=== PATIENT | female | born 1985 | race Caucasian/White ===

== ENCOUNTER 2022-04-13 09:09 | Emergency (ER) | payer OTHER, SELFPAY ==
--- NOTE | 2022-04-13 09:19 | ED.ANXIETY ---
HPI - Anxiety General Chief Complaint: Anxiety Stated Complaint: anxiety Time Seen by Provider: 04/13/22 09:19 Source: patient Mode of arrival: ambulatory Limitations: no limitations History of Present Illness HPI narrative: 36-year-old female, smoker with a history of anxiety, chronic pain with negative stress test presents to the ER with a six-month history of -- left-sided chest which is unprovoked and nonradiating. -- Nausea. he complained of abdominal pain to the nurse but did not tell me that she was having abdominal pain. She has a history of an ovarian cyst. -- throat pain -- loss of taste for the past 3 months -- dizziness she was on her way to work when she developed the above symptoms. The patient turned around and went back home. She is brought into the ER by EMS. MD complaint: anxiety Onset (ago): month(s) Symptoms: chest pain and extremity numbness/tingling Severity: mild Quality: constant Place: home History of similar episodes: Yes Provoking factors: none known Relieving factors: nothing Exacerbating factors: nothing Associated symptoms: denies other symptoms, chest pain, palpitations and nausea/vomiting Related Data Home Medications Medication Instructions Recorded Confirmed lorazepam 1 mg tablet 0.25 mg PO TID PRN Anxiety 04/13/22 04/13/22 Allergies Allergy/AdvReac Type Severity Reaction Status Date / Time vancomycin Allergy Difficulty Verified 04/13/22 09:39 Breathing Review of Systems Review of Systems: All systems reviewed & are unremarkable except as noted in HPI and below Constitutional: Constitutional: Reports as per HPI and Reports no additional constitutional complaints Eyes: Eyes: Reports as per HPI and Reports no additional eye complaints ENT: Reports system reviewed and no additional complaints, except as documented, Reports as per HPI and Reports sore throat Cardiovascular: Cardiovascular: Reports as per HPI, Reports no additional cardiovascular complaints and Reports chest pain Respiratory: Respiratory: Reports as per HPI and Reports no additional respiratory complaints Gastrointestinal: Gastrointestinal: Reports as per HPI and Reports no additional gastrointestinal complaints Comments: Had an EGD last year which revealed fungal infection Genitourinary: Genitourinary: Reports no additional female genitourinary complaints and Reports as per HPI Musculoskeletal: Musculoskeletal: Reports no additional musculoskeletal complaints and Reports as per HPI Integumentary/Breasts: Skin/Breast: Reports system reviewed and no additional complaints, except as docu and Reports as per HPI Neurologic: Reports system reviewed and no additional complaints, except as documented and Reports as per HPI Psychiatric: Psychiatric: Reports no additional psychiatric complaints, Reports as per HPI and Reports anxiety Endocrine: Endocrine: Reports no additional endocrine complaints and Reports as per HPI Hematologic/Lymphatic: Hematologic/Lymphatic: Reports no additional hematologic/lymphatic complaints and Reports as per HPI Allergic/Immunologic: Allergic/Immunologic: Reports no additional allergic/immunologic complaints and Reports as per HPI PMFSH Past Medical History Medical History Anxiety Social History Social History Substance use type: does not use Exam Const: General: healthy appearing and no acute distress Orientation/consciousness: patient oriented x3 Limitations: no limitations HENMT: Head: normal to inspection Ears: external ears normal Face/Nose/Sinus: Normal external nose present Face and sinus: normal facial exam Mouth: Yes Normal oral and palatal mucosa present Throat: posterior oropharynx normal Eyes: Conjunctivae: conjunctivae normal Pupils: Equal, round and reactive pupils present EOM: EOMs intact bilaterally Direct Ophthalmoscopy: no photoph
[2022-04-13 09:21] VITALS: BP 109/77; PULSE 88; RESP 20; TEMP 37.3; O2SAT 96
--- NOTE | 2022-04-13 09:30 | ECG_ITS ---
Measurements Intervals [place] Rate: 85 P: 90 TN: 117 QRS: 66 QRSD: 110 T: 84 QT: 377 QTc: 449 Interpretive Statements SINUS RHYTHM WITH SHORT TN INTERVAL INCOMPLETE LEFT BUNDLE BRANCH BLOCK ABNORMAL ECG NO PREVIOUS ECG AVAILABLE FOR COMPARISON Electronically Signed On 04-13-2022 10:03:36 PHOTOGRAPH FINISHER by Jadon Gonzales D.O.
[2022-04-13 09:57] LABS: Hematocrit 35.8 % (35.0-49.0); Hemoglobin 12.2 g/dL (12.0-15.0); Mean Corpuscular HGB Conc 34.1 g/dL (32.0-36.0); Mean Corpuscular Hemoglobin 29.5 pg (27.0-31.0); Mean Corpuscular Volume 86.5 fL (78.0-102.0); Mean Platelet Volume 9.1 fl (9.2-11.8); Platelet Count Result 192 K/mm3 (150-420); Red Blood Count 4.14 M/mm3 (4.20-5.40); Red Cell Distribution Width 12.2 % (11.6-14.4); White Blood Count 3.4 K/mm3 (4.8-10.8)
[2022-04-13 09:59] LABS: Add Urine Microscopic? YES; Appearance Urine Clear (Clear); Bilirubin Urine Negative (Negative); Blood Urine 1+ (Negative); Color Urine Light Yellow (Yellow); Glucose Urine UA Negative (Negative); Ketones Urine Negative (Negative); Leukocyte Esterase Ur Negative LEU/UL (Negative); Nitrate Urine Negative (Negative); Protein Urine Negative (Negative); Specific Grav Ur <= 1.005 (1.010-1.020); Urobilinogen Urine 0.2 mg/dL (0.2-1.0)
[2022-04-13 10:05] LABS: RBC Urine 0-2 /hpf (0-2)
[2022-04-13 10:06] LABS: Bacteria Urine Trace /hpf; Squamous Epithelial Cell Urine Few /hpf (Few); WBC Urine None seen /hpf (0-3)
[2022-04-13 10:07] LABS: Pregnancy On Board Control Positive; Urine Pregnancy Test Negative
[2022-04-13 10:12] LABS: Band Neutrophils Percent 4 % (0-6); Lymphocytes Absolute Manual 0.78 K/mm3 (1.1-4.5); Lymphocytes Percent Manual 23 % (18-44); Monocytes Percent Manual 6 % (3-9); Neutrophils Absolute Manual 2.41 K/mm3 (1.7-7.2); Neutrophils Percent Manual 67 % (46-73); Platelet Estimate Adequate (Adequate); Total Cells Counted 100
[2022-04-13 10:16] LABS: Lactic Acid Reflex 0.6 mmol/L (0.4-2.0)
[2022-04-13 10:21] LABS: Albumin Level 4.2 g/dL (3.4-5.0); Alkaline Phosphatase 61 U/L (46-116); Anion Gap 6 mmol/L (8-16); Aspartate Amino Transferase 11 U/L (15-37); Bilirubin,Total 0.5 mg/dL (0.00-1.00); Blood Urea Nitrogen 7 mg/dL (7-18); Calcium 8.5 mg/dL (8.5-10.1); Carbon Dioxide 29 mmol/L (21-32); Chloride 105 mmol/L (98-108); Estimated CRCL calculation 75 ml/min; Estimated Glomerular Filt Rate > 60; Glucose 87 mg/dL (70-99); Osmolality Calculated 287 mOsm/kg (285-295); Potassium 3.2 mmol/L (3.5-5.1); Sodium 140 mmol/L (136-145); Thyroid Stimulating Hormone 0.84 uIU/mL (0.36-3.74); Total Protein 7.6 g/dL (6.4-8.2); Troponin I 4.2 ng/L (0.00-60.4)
[2022-04-13 10:26] LABS: Lipase 18 U/L (16-77)
[2022-04-13 10:27] LABS: Strep Group A RT-PCR NOT DETECTED (Negative)
[2022-04-13 10:28] LABS: Partial Thromboplastin Time 30.3 SEC (23.90-30.70)
[2022-04-13 10:31] LABS: Alanine Aminotransferase 12 U/L (14-59)
[2022-04-13 10:33] LABS: Influenza A QL RT-PCR Positive (Negative); Influenza B QL RT-PCR Negative (Negative); SARS-CoV-2 RNA PCR Negative (Negative)
[2022-04-13 10:44] VITALS: BP 106/76; PULSE 85; RESP 20; O2SAT 97
[2022-04-13] MEDS: POTASSIUM CHLORIDE 20 MEQ TABLET PO (11:11)
[2022-04-13 11:28] VITALS: BP 110/77; PULSE 91; RESP 20; O2SAT 96
== END 2022-04-13 11:28 | disposition home or self-care (01) ==
PROVIDERS: Emergency Provider Internal Medicine Critical Care Medicine
DX: J10.1 Influenza due to other identified influenza virus with other respiratory manifestations (principal); F41.9 Anxiety disorder, unspecified; Z20.822 Contact with and (suspected) exposure to COVID-19
CPT/HCPCS: 36415; 80053; 81001; 81025; 83605; 83690; 84443; 84484; 85025; 85730; 87636; 87651; 93005; 99284; A9270

== ENCOUNTER 2022-06-02 08:01 | Emergency (ER) | payer OTHER, SELFPAY ==
[2022-06-02] VITALS (16 sets, daily range): BP systolic 101–118; BP diastolic 65–85; PULSE 66–99; RESP 14–24; TEMP 36.3; O2SAT 97–100
--- NOTE | ~2022-06-02 | XR_ITS ---
EXAMINATION: XR chest 2V 06/02/2022 08:43 INDICATION: Chest pain and shortness of breath PROCEDURE: 2 view chest COMPARISON: No prior studies for comparison. FINDINGS: The lungs are clear. The cardiomediastinal silhouette is within normal limits. There are no pleural effusions. There is no pneumothorax suspected. There are prominent bilateral nipple shad ows. IMPRESSION: 1: NO ACUTE CARDIOPULMONARY DISEASE. Reviewed, dictated and finalized at location L. TERIA FOOD SERVER
--- NOTE | 2022-06-02 08:10 | ECG_ITS ---
Measurements Intervals [place] Rate: 94 P: 81 AL: 126 QRS: 23 QRSD: 104 T: 49 QT: 350 QTc: 438 Interpretive Statements SINUS RHYTHM INCOMPLETE RIGHT BUNDLE BRANCH BLOCK [90+ ms QRS DURATION, TERMINAL R IN V1/V2, 40+ ms S IN I/aVL/V4/V5/V6] BORDERLINE ECG COMPARED TO ECG 04/13/2022 09:42:01 INCOMPLETE RIGHT BUNDLE-BRANCH BLOCK NOW PRESENT Electronically Signed On 06-02-2022 14:13:08 TIRE MOLD TESTER by Dano Randhawa M.D.
[2022-06-02 08:31] LABS: Eosinophils Absolute Auto 0.1 K/mm3 (0-0.3); Eosinophils Percent Auto 2.7 % (0-4.4); Hematocrit 35.1 % (37.0-47.0); Immature Granulocyte Absolute 0.01 K/mm3 (0.00-0.031); Immature Granulocyte Percent A 0.2 % (0-0.5); Lymphocytes Absolute Auto 1.31 K/mm3 (0.9-3.2); Lymphocytes Percent Auto 31.8 % (18.3-44.2); Mean Corpuscular HGB Conc 34.2 g/dl (32-36); Mean Corpuscular Hemoglobin 29.2 pg (26-34); Mean Corpuscular Volume 85.4 fl (80-100); Mean Platelet Volume 8.6 fl (7.4-10.4); Monocytes Absolute Auto 0.3 K/mm3 (0.1-0.6); Monocytes Percent Auto 6.6 % (2.6-8.5); Neutrophils Absolute Auto 2.4 K/mm3 (1.3-6.7); Neutrophils Percent Auto 57.7 % (45.5-73.1); Platelet Count Result 238 k/mm3 (150-375); Red Blood Count 4.11 M/mm3 (4.2-5.4); Red Cell Distribution Width 12.9 % (11.5-14.5); White Blood Count 4.1 K/mm3 (4.5-10.0)
[2022-06-02 08:41] LABS: INR 1.1; Prothrombin Time 13.9 Seconds (11.1-14.7)
[2022-06-02 08:42] LABS: Partial Thromboplastin Time 26.4 SECONDS (22.3-36.8)
[2022-06-02 08:43] LABS: Alanine Aminotransferase 14 U/L (6-35); Albumin Level 4.6 g/dL (3.5-5.1); Alkaline Phosphatase 53 U/L (38-126); Anion Gap 5 mmol/L (8-16); Aspartate Amino Transferase 18 U/L (14-36); Blood Urea Nitrogen 9 mg/dL (7-17); Calcium 8.8 mg/dL (8.4-10.2); Carbon Dioxide 26 mmol/L (22-30); Chloride 107 mmol/L (98-107); Estimated CRCL calculation 91 ml/min; Estimated Glomerular Filt Rate > 60; Glucose 103 mg/dL (65-110); Lipase 36 U/L (23-300); Potassium 3.5 mmol/L (3.4-5.0); Sodium 138 mmol/L (137-145)
[2022-06-02 08:52] LABS: Troponin I < 0.012 ng/mL (0.000-0.034)
[2022-06-02] MEDS: ACETAMINOPHEN 500 MG TABLET 1000 MG PO (09:53)
--- NOTE | 2022-06-02 09:53 | PC.NURSE ---
pt only wanting to take 1 tylenol due to the tablets being to big to swallow. offered to cut tablets and pt refused. pt only drank half of the gi cocktail because it was making her tongue numb and that was causing her to have anxiety. pt denies any pain at this time.
[2022-06-02] MEDS: BELLADONNA ALK/PHENOB ELIX 10 ML, MAG HYDROX/ALUMINUM HYD/SIMETH 30 ML, LIDOCAINE HCL 2... PO (09:54)
--- NOTE | 2022-06-02 10:58 | ED.CHESTPAIN ---
HPI - Chest Pain General Chief Complaint: Chest Pain Stated Complaint: chest pain, high heart rate Time Seen by Provider: 06/02/22 08:06 History of Present Illness HPI narrative: Patient is a 37-year-old female who presents ER with elevated heart rate. Reports it was 160 bpm while she was driving. She is having chest tightness. This has been happening to her intermittently over the last several months. She has been following with her doctor in regards to but does not have a diagnosis. She does have history of anxiety and denies feeling anxious prior to symptoms beginning. She does report feeling anxious after she began having her racing the heart. No loss of consciousness. No numbness or weakness in arm or leg. Related Data Home Medications Medication Instructions Recorded Confirmed lorazepam 1 mg tablet 0.25 mg PO TID PRN Anxiety 04/13/22 04/13/22 Allergies Allergy/AdvReac Type Severity Reaction Status Date / Time vancomycin Allergy Difficulty Verified 04/13/22 09:39 Breathing Review of Systems Review of Systems: All systems reviewed & are unremarkable except as noted in HPI and below Constitutional: Constitutional: Denies chills, Denies fatigue and Denies fever(s) ENT: Denies nasal congestion and Denies sore throat Cardiovascular: Cardiovascular: Denies chest pain, Reports rapid heart rate and Denies radiating jaw, neck or arm pain Respiratory: Respiratory: Denies cough, Denies dyspnea and Denies wheezing Gastrointestinal: Gastrointestinal: Denies abdominal pain, Denies nausea and Denies vomiting Genitourinary: Genitourinary: Denies nocturia, Denies dysuria and Denies flank pain PMFSH Past Medical History Medical History Anxiety Social History Social History Substance use type: does not use Exam Narrative: GENERAL: Well-appearing, well-nourished, and in no acute distress. HEAD: Normocephalic, atraumatic. EYES: PERRL and EOMI. CHEST: Clear to auscultation. No respiratory distress. HEART: Regular rate and rhythm. Normal peripheral pulses. ABDOMEN: Soft, nontender, nondistended. EXTREMITIES: Normal range of motion. No edema. SKIN: Warm, dry, no rash. NEURO: Alert and oriented x3. PSYCH: Normal mood and affect. Course Course Emergency Course: No evidence of arrhythmia here. Labs unremarkable. Patient feeling improved. She was given GI cocktail for some of her chest tightness which did not really change anything. She will be discharged home and recommend follow-up with PCP. Patient aware of diagnosis and treatment plan and lab results. Vital Signs Vital signs: Vital Signs Temperature 97.4 F L 06/02/22 08:07 Pulse Rate 99 06/02/22 08:07 Respiratory Rate 16 06/02/22 08:07 Blood Pressure 118/85 06/02/22 08:07 Pulse Oximetry 100 06/02/22 08:07 Oxygen Delivery Room Air 06/02/22 08:07 Temperature 97.4 F L 06/02/22 08:07 Pulse Rate 66 06/02/22 11:25 Respiratory Rate 16 06/02/22 11:25 Blood Pressure 104/65 06/02/22 11:25 Pulse Oximetry 98 06/02/22 11:25 Oxygen Delivery Room Air 06/02/22 08:07 MDM - Chest Pain Lab Data 06/02/22 08:19 06/02/22 08:18 Labs: Lab Results 06/02/22 06/02/22 06/02/22 Range/Units 08:18 08:18 08:19 WBC 4.1 L (4.5-10.0) K/mm3 RBC 4.11 L (4.2-5.4) M/mm3 Hgb 12.0 (12.0-15.0) g/dL Hct 35.1 L (37.0-47.0) % MCV 85.4 (80-100) fl MCH 29.2 (26-34) pg MCHC 34.2 (32-36) g/dl RDW 12.9 (11.5-14.5) % Plt Count 238 (150-375) k/mm3 MPV 8.6 (7.4-10.4) fl Immature Gran % (Auto) 0.2 (0-0.5) % Neut % (Auto) 57.7 (45.5-73.1) % Lymph % (Auto) 31.8 (18.3-44.2) % [place] % (Auto) 6.6 (2.6-8.5) % Eos % (Auto) 2.7 (0-4.4) % Baso % (Auto) 1.0 (0.2-1.2) % Lymph # (Auto) 1.31 (0.9-3.2) K/mm3 [place] # (Auto)
== END 2022-06-02 11:25 | disposition home or self-care (01) ==
PROVIDERS: Emergency Provider Emergency Medicine
DX: R00.2 Palpitations (principal); F41.9 Anxiety disorder, unspecified; I45.10 Unspecified right bundle-branch block
CPT/HCPCS: 36415; 71046; 80053; 83690; 84484; 85025; 85610; 85730; 93005; 99284; A9270

== ENCOUNTER 2022-06-09 08:20 | Emergency (ER) | payer OTHER, SELFPAY ==
[2022-06-09] VITALS (9 sets, daily range): BP systolic 105–146; BP diastolic 68–90; PULSE 78–98; RESP 16–21; TEMP 36.8; O2SAT 96–99
--- NOTE | 2022-06-09 08:25 | ECG_ITS ---
Measurements Intervals [place] Rate: 86 P: 102 [place]: 118 QRS: 47 QRSD: 110 T: 88 QT: 353 QTc: 424 Interpretive Statements SINUS RHYTHM WITH SINUS ARRHYTHMIA WITH SHORT WI INTERVAL BORDERLINE ECG COMPARED TO ECG 06/02/2022 08:13:33 CRITERIA FOR INCOMPLETE RIGHT BUNDLE-BRANCH BLOCK NO LONGER APPRECIATED Electronically Signed On 06-09-2022 15:17:44 AEROPHYSICIST by Dale Cerna M.D.
--- NOTE | 2022-06-09 08:46 | ED.CHESTPAIN ---
HPI - Chest Pain General Chief Complaint: Chest Pain Stated Complaint: chest pain; high heart rate Time Seen by Provider: 06/09/22 08:31 Source: patient Mode of arrival: ambulatory Limitations: no limitations History of Present Illness HPI narrative: Patient states she has been having episodes tachycardia and actually went to another hospital 1 week ago because she was driving. The time she arrived her heart rate had improved. Her also helps with some of the history. Patient has been having these episodes since she was diagnosed with COVID last September. This morning she got up with rapid heartbeat and sharp stabbing pain in her chest at 6:15 a.m. this morning. She showed me a picture of her O2 sat monitor that showed her heart rate 157. She said her blood pressure was 103 systolic. She felt weak. She took a cool shower. She felt slightly nauseous. She denied any shortness of breath felt wiped out. complaint: chest pain Onset (ago): hour(s) (2.5) Timing of current episode: episodic Prior episodes: Yes Onset: awoke with symptoms Pain location: left chest Pain radiation: none Severity: moderate Quality: sharp Relieving factors: rest Exacerbating factors: exertion Context: other ( Since COVID last September) Associated symptoms: nausea Treatment prior to arrival: none Risk Factors Coronary artery disease risk factors: smoking history Related Data Home Medications Medication Instructions Recorded Confirmed lorazepam 1 mg tablet 0.25 mg PO TID PRN Anxiety 04/13/22 06/09/22 metoprolol succinate 25 mg 12.5 mg PO PRN PRN Tachycardia 06/09/22 06/09/22 tablet,extended release 24 hr Allergies Allergy/AdvReac Type Severity Reaction Status Date / Time vancomycin Allergy Difficulty Verified 06/09/22 08:43 Breathing Review of Systems Review of Systems: All systems reviewed & are unremarkable except as noted in HPI and below PMFSH Past Medical History Medical History Anxiety Social History Social History (Updated 06/09/22 @ 09:44 by Juan Jose Saleh MD) Smoking status: Current every day smoker Tobacco type: e-cigarettes/vaping Substance use type: does not use Course Course Emergency Course: Long discussion with patient regarding diagnosis and current medications. I would like to start her on calcium channel micah to avoid any episodes of sinus tachycardia. She will discuss with the vest tailor when she get an appointment regarding medication changes that the vest tailor would recommend. MDM - Chest Pain MDM Narrative Medical decision making narrative: Differential diagnosis: PSVT, sinus tachycardia, POTS syndrome, long haul COVID-19, anemia, electrolyte abnormality, other infectious process. Differential Diagnosis Differential diagnosis: Likely stable angina, atypical chest pain and st elevation myocardial infarction Discharge Plan Discharge Clinical Impression: Atypical chest pain, Tachycardia Patient Disposition: Home, Self-Care Condition: Stable Instructions: Chest Pain (ED), Tachycardia (ED) Additional Instructions: contact your vest tailor to set up an appointment for further discussion regarding medications. Prescriptions: New diltiazem HCl [Cardizem CD] 240 mg capsule,extended release 24hr 240 mg PO DAILY Qty: 30 0RF No Action lorazepam 1 mg tablet 0.25 mg PO TID PRN (Reason: Anxiety) metoprolol succinate 25 mg tablet extended release 24 hr 12.5 mg PO PRN PRN (Reason: Tachycardia) Follow-up/Referrals: UNKNOWN,DOCTOR [Non-Staff] - Time of Disposition: 09:47
[2022-06-09] MEDS: ASPIRIN 81 MG CHEWABLE TABLET 324 MG PO (08:53)
[2022-06-09 09:06] LABS: Basophils Absolute Auto 0.03 K/mm3 (0.00-0.10); Basophils Percent Auto 0.5 % (0.0-1.0); Eosinophils Absolute Auto 0.06 K/mm3 (0.02-0.50); Eosinophils Percent Auto 1.1 % (1.0-6.0); Hematocrit 37.9 % (35.0-49.0); Hemoglobin 12.6 g/dL (12.0-15.0); Immature Granulocyte Absolute 0.01 K/mm3 (0.00-0.00); Immature Granulocyte Percent A 0.2 % (0.0-0.0); Lymphocytes Absolute Auto 1.07 K/mm3 (1.10-4.50); Lymphocytes Percent Auto 19.3 % (18.0-42.0); Mean Corpuscular HGB Conc 33.2 g/dL (32.0-36.0); Mean Corpuscular Hemoglobin 29.4 pg (27.0-31.0); Mean Corpuscular Volume 88.6 fL (78.0-102.0); Mean Platelet Volume 8.5 fl (9.2-11.8); Monocytes Absolute Auto 0.28 K/mm3 (0.10-0.90); Monocytes Percent Auto 5.1 % (2.0-11.0); Neutrophils Absolute Auto 4.1 K/mm3 (1.7-7.2); Neutrophils Percent Auto 73.8 % (50.0-70.0); Platelet Count Result 273 K/mm3 (150-420); Red Blood Count 4.28 M/mm3 (4.20-5.40); Red Cell Distribution Width 12.6 % (11.6-14.4); White Blood Count 5.5 K/mm3 (4.8-10.8)
[2022-06-09 09:22] LABS: D Dimer 0.19 mg/L (0.19-0.50); INR 1.1; Partial Thromboplastin Time 26.2 SEC (23.90-30.70); Prothrombin Time 11.5 Seconds (9.50-12.10)
[2022-06-09 09:24] LABS: Alanine Aminotransferase 16 U/L (14-59); Albumin Level 4.2 g/dL (3.4-5.0); Alkaline Phosphatase 67 U/L (46-116); Anion Gap 8 mmol/L (8-16); Aspartate Amino Transferase 19 U/L (15-37); Bilirubin,Total 1.5 mg/dL (0.00-1.00); Blood Urea Nitrogen 9 mg/dL (7-18); Calcium 8.9 mg/dL (8.5-10.1); Carbon Dioxide 30 mmol/L (21-32); Chloride 105 mmol/L (98-108); Estimated CRCL calculation 84 ml/min; Estimated Glomerular Filt Rate > 60; Glucose 96 mg/dL (70-99); Osmolality Calculated 294 mOsm/kg (285-295); Potassium 4.1 mmol/L (3.5-5.1); Sodium 143 mmol/L (136-145); Total Protein 7.6 g/dL (6.4-8.2); Troponin I 5.2 ng/L (0.00-60.4)
== END 2022-06-09 09:55 | disposition home or self-care (01) ==
PROVIDERS: Emergency Provider Emergency Medicine
DX: R07.89 Other chest pain (principal); R00.0 Tachycardia, unspecified; F41.9 Anxiety disorder, unspecified; F17.290 Nicotine dependence, other tobacco product, uncomplicated
CPT/HCPCS: 36415; 80053; 84484; 85025; 85380; 85610; 85730; 93005; 99284; A9270

== ENCOUNTER 2024-04-23 13:15 | Emergency (ER) | payer SELFPAY ==
--- NOTE | ~2024-04-23 | XR_ITS ---
CHEST RADIOGRAPH, PA AND LATERAL CLINICAL HISTORY: dizziness WITH TINGLING TO FACE AND ARMS X 1 DAY . COMPARISON: 06/02/2022 TECHNIQUE: PA and lateral views of the chest. FINDINGS The cardiomediastinal silhouette is unremarkable. The lungs are clear. Visualized osseous structures and soft tissues are unremarkable. IMPRESSION: No focal infiltrate or effusion. Reviewed, dictated and finalized at location A. ATERIALS ENGINEER
--- NOTE | ~2024-04-23 | CT_ITS ---
History: Headache PROCEDURE: CT head without contrast. COMPARISON: None TECHNIQUE: Axial imaging of the head performed from the skull base to the vertex without IV contrast. Sagittal a nd coronal reformations obtained. DLP: 605 mGy-cm FINDINGS: The ventricles are normal in size, shape and position. There is no mass, mass effect or midline shift. There is no abnormal extra-axial fluid collection or intracranial hemorrhage. Visualized paranasal sinuses are clear. The mastoid air cells are well aerated. No acute displaced fractures within the overlying cranium. Impression: No acute intracranial hemorrhage or suspicious mass effect. Reviewed, dictated and finalized at location A. ENGINEERING MANAGER Impression: No acute intracranial hemorrhage or suspicious mass effect.
--- NOTE | ~2024-04-23 | CT_ITS ---
CTA brain carotid Ordering provider: Chelsy Russell PA-C History: . dizziness, headache, paresthesias . Comparison: None. Technique: CT angiogram head was performed following timed intravenous injection of contrast. Thin sl ice axial images and reformatted coronal images were obtained. Three dimensional reformatted images o f the brain were also obtained using a [employer] workstation. DLP: 838 mGy-cm FINDINGS: HEAD: --ANTERIOR AND MIDDLE CEREBRAL ARTERIES AND BRANCHES: Normal caliber and contour. --INTRACRANIAL INTERNAL CAROTID ARTERIES: Mild atheromatous disease but no significant stenosis. No o cclusion. --BASILAR ARTERY AND BRANCHES: Normal caliber and contour. No significant atheromatous disease. --POSTERIOR CEREBRAL ARTERIES: Normal caliber and contour --POSTERIOR COMMUNICATING ARTERIES: Not well visualized likely related to congenital absence or small size. --ANEURYSM: None visualized. --BRAIN: Please refer to report of CT head performed the same day. --BONES AND SUPERFICIAL SOFT TISSUES: Please refer to report of CT head performed the same day. --PARANASAL SINUSES AND MASTOIDS: Please refer to report of CT head done the same day. 2 IMPRESSION: 1. Unremarkable CTA head. Recommend MRI examination of the brain and cervical spine, when patient is clinically able as multipl e sclerosis can present with similar symptoms. Reviewed, dictated and finalized at location A. HISTORIAN IMPRESSION: 1. Unremarkable CTA head. Recommend MRI examination of the brain and cervical spine, when patient is clin ically able as multiple sclerosis can present with similar symptoms.
[2024-04-23 13:29] VITALS: BP 140/83; PULSE 91; RESP 17; TEMP 36.8; O2SAT 98
--- NOTE | 2024-04-23 15:37 | ECG_ITS ---
Test Date: 2024-04-23 17:38:29 Measurements Intervals [place] Rate: 60 P: 3 [place]: 123 QRS: 41 QRSD: 113 T: 55 QT: 415 QTc: 415 Interpretive Statements SINUS RHYTHM INCOMPLETE RIGHT BUNDLE BRANCH BLOCK [90+ ms QRS DURATION, TERMINAL R IN V1/V2, 40+ ms S IN I/aVL/V4/V5/V6] No previous ECG available for comparison Electronically Signed On 04-24-2024 21:55:33 ENVIRONMENTAL DIRECTOR by Girban Houston M.D.
--- NOTE | 2024-04-23 15:38 | ED.DIZZY ---
HPI - Dizziness General Chief Complaint: Dizziness Stated Complaint: dizziness, ALICEA, facial numbness Time Seen by Provider: 04/23/24 15:38 Focused HPI: This is a 38-year-old female that presents to the emergency department for symptoms worsening over the last 2 weeks. Reports headaches with associated pain radiating into her neck. Reports she gets tingling in her arms, face and legs. Reports today she was dizzy she was not able to ambulate because she felt so off balance which prompted her to be seen. GENERAL: Well-appearing, well-nourished, and in no acute distress. HEAD: Normocephalic, atraumatic. CHEST: Clear to auscultation. ?No respiratory distress. HEART: Regular rate and rhythm.? NEURO: ?Alert and oriented x3. Patient screened in triage and initial orders placed.? ?Additional care and disposition to be based upon?diagnostic testing and treatment. Related Data Home Medications ?Medication ?Instructions ?Recorded ?Confirmed ?Last Taken ?Type lorazepam 1 mg tablet 0.25 mg PO TID PRN Anxiety 04/13/22 06/09/22 04/13/22 History metoprolol succinate 25 mg 12.5 mg PO PRN PRN Tachycardia 06/09/22 06/09/22 Unknown History tablet,extended release 24 hr Allergies Allergy/AdvReac Type Severity Reaction Status Date / Time vancomycin Allergy Difficulty Verified 04/23/24 17:46 Breathing Review of Systems Review of Systems: CONSTITUTIONAL: Denies fever EYES: Denies visual changes GASTROINTESTINAL: Denies vomiting NEUROLOGIC: Reports headache, numbness, and weakness. All systems reviewed & are unremarkable except as noted in HPI and below PMFSH Past Medical History Medical History Anxiety Social History Social History (Updated 06/09/22 @ 09:44 by Juan Jose SalehMD) Smoking status: Current every day smoker Tobacco type: e-cigarettes/vaping Substance use type: does not use Exam Narrative: GENERAL: Well-appearing, well-nourished, and in no acute distress. HEAD: Normocephalic, atraumatic. EYES: PERRLA and EOMI. ENT: Nares clear, no rhinorrhea or epistaxis. Mucous membranes moist. Oropharynx without tonsillar hypertrophy exudate or other lesions. Bilateral TMs pearly [place] non-bulging NECK: Supple. No adenopathy or masses. CHEST: Clear to auscultation. No respiratory distress. No wheezes rales or rhonchi HEART: Regular rate and rhythm. No murmur heard. Normal peripheral pulses. EXTREMITIES: Normal range of motion. No edema. SKIN: Warm, dry, no rash. NEURO: No focal deficits. Alert and oriented x3. CN II-XII grossly intact. Normal gait PSYCH: Normal mood and affect Course Course Emergency Course: Patient updated on her workup. We discussed further evaluation inpatient to do MRI that radiology has recommended. Patient does not wish to stay in the hospital at this time. Reports she will follow-up with her PCP for further evaluation. I will also give her information for neurology follow-up Vital Signs Vital signs: Vital Signs Temperature 98.3 F 04/23/24 13:29 Pulse Rate 91 04/23/24 13:29 Respiratory Rate 17 04/23/24 13:29 Blood Pressure 140/83 04/23/24 13:29 Pulse Oximetry 98 04/23/24 13:29 Oxygen Delivery Room Air 04/23/24 13:29 Temperature 97.9 F 04/23/24 17:38 Pulse Rate 59 L 04/23/24 20:05 Respiratory Rate 19 04/23/24 20:05 Blood Pressure 103/57 L 04/23/24 20:05 Pulse Oximetry 99 04/23/24 20:05 Oxygen Delivery Room Air 04/23/24 13:29 MDM - Dizziness MDM Narrative Medical decision making narrative: Patient presents to the ER for symptoms ongoing over the last couple of weeks. Reporting headaches, paresthesias, dizziness. Her vitals are stable. She is neurologically intact. CBC metabolic panel without concerning findings. Urine with 11-20 white blood cells, also many squamous epithelial cells. Patient does not have any urinary symptoms. This will be sent for culture. test is negative. CT brain without acute findings. CTA brain and carotid is unremarkable. Patient updated on her workup. We discussed further evaluation inpatient to do MRI that radiology has recommended. Patient does not wish to stay in the hospital at this time. Reports she will follow-up with her PCP for further evaluation. I will also give her information for neurology follow-up Differential Diagnosis Differential diagnosis: Likely adverse reaction to drug, benign paroxysmal positional vertigo, orthostatic hypotension and other (Migraine, intracranial hemorrhage, multiple sclerosis) Lab Data Attestation: I reviewed the patient's lab results. 04/23/24 17:42 04/23/24 17:42 Labs: Lab Results 04/23/24 04/23/24 04/23/24 Range/Units 17:42 17:46 17:47 WBC 5.2 (4.5-10.0) K/mm3 RBC 4.14 L (4.2-5.4) M/mm3 Hgb 12.3 (12.0-15.0) g/dL Hct 36.7 L (37.0-47.0) % MCV 88.6 (80-100) fl MCH 29.7 (26-34) pg MCHC 33.5 (32-36) g/dl RDW 12.4 (11.5-14.5) % Plt Count 238 (150-375) k/mm3 MPV 8.9 (7.4-10.4) fl Immature Gran % (Auto) 0.4 (0-0.5) % Neut % (Auto) 47.6 (45.5-73.1) % Lymph % (Auto) 40.3 (18.3-44.2) % [place] % (Auto) 9.2 H (2.6-8.5) % Eos % (Auto) 1.9 (0-4.4) % Baso % (Auto) 0.6 (0.2-1.2) % Lymph # (Auto) 2.11 (0.9-3.2) K/mm3 [place] # (Auto) 0.5 (0.1-0.6) K/mm3 Eos # (Auto) 0.1 (0-0.3) K/mm3 Baso # (Auto) 0.0 (0.0-0.1) K/mm3 Abs Immat Gran (auto) 0.02 (0.00-0.031) K/mm3 Absolute Neuts (auto) 2.5 (1.3-6.7) K/mm3 Absolute Nucleated RBC 0.000 (0.0-0.012) K/mm3 Nucleated RBC % 0.0 (0.0-0.2) % PT 14.7 (11.1-14.7) Seconds INR 1.1 APTT 28.8 (22.3-36.8) Seconds Sodium 140 (137-145) mmol/L Potassium 3.9 (3.4-5.0) mmol/L Chloride 102 (98-107) mmol/L Carbon Dioxide 29 (22-30) mmol/L Anion Gap 9 (4-12) mmol/L BUN 9 (7-17) mg/dL Creatinine 0.52 L (0.7-1.0) mg/dL Estim Creat Clear Calc 87 ml/min Estimated GFR > 60 (59 - ) Glucose 92 (65-110) mg/dL Calcium 9.1 (8.4-10.2) mg/dL Total Bilirubin 0.8 (0.2-1.3) mg/dL AST 19 (14-36) U/L ALT 14 (6-35) U/L Alkaline Phosphatase 51 (38-126) U/L Total Protein 7.0 (6.3-8.2) g/dL Albumin 4.5 (3.5-5.1) g/dL Urine Color Yellow (Yellow) Urine Appearance Cloudy H (Clear) Urine pH 5.5 (5.0-9.0) Ur Specific [place] 1.021 (1.001-1.035) Urine Protein Trace (Negative) mg/dL Urine Glucose (UA) Negative (Negative) mg/dL Urine Ketones 1+ H (Negative) mg/dL Ur Blood (Man) 1+ H (Negative) Urine Nitrate Negative (Negative) Urine Bilirubin Negative (Negative) Urine Urobilinogen 0.2 (<2.0) mg/dL Add Ur Microanalysis Reviewed Leukocyte Esterase Rfl Negative (Negative) TRISH/UL Urine RBC 3-5 H (0-2) /hpf Urine WBC 11-20 H (0-3) /hpf Ur Squamous Epith Cells Many H (Few) /hpf Urine Bacteria 3+ H /hpf Urine Casts 0-2 Urine Mucus Present /lpf POC Urine HCG, Qual Negative (Negative) Imaging Data Radiologist's impression: ITS Impressions Chest X-Ray 04/23/24 16:25 IMPRESSION: No focal infiltrate or effusion. Head CT 04/23/24 16:25 Impression: No acute intracranial hemorrhage or suspicious mass effect. Head/Neck CTA 04/23/24 19:51 IMPRESSION: 1. Unremarkable CTA head. Recommend MRI examination of the brain and cervical spine, when patient is clinically able as multiple sclerosis can present with similar symptoms. ECG Data EKG #1: ECG completion date: 04/23/24 EKG Interpretation: normal rate, sinus rhythm, no ST changes and normal QT Critical Care Time Critical Care Time Critical Care Time: No Discharge Plan Discharge Clinical Impression: Dizziness, Headache Patient Disposition: Home, Self-Care Condition: Improved Instructions: Dizziness (ED), General Headache (ED) Additional Instructions: Return to the emergency department if you experience fever, chest pain, shortness of breath, abdominal pain with nausea and vomiting, weakness, numbness, or any other symptoms that are concerning to you. Your blood work and imaging here is reassuring. The radiologist does recommend MRI of your brain and cervical spine for further evaluation Meclizine as needed for dizziness Follow up with your primary care doctor and/or neurology. Patient Language: Swedish Prescriptions: New meclizine 25 mg tablet 25 mg PO BID PRN (Reason: dizziness) Qty: 10 0RF No Action lorazepam 1 mg tablet 0.25 mg PO TID PRN (Reason: Anxiety) metoprolol succinate 25 mg tablet extended release 24 hr 12.5 mg PO PRN PRN (Reason: Tachycardia) diltiazem HCl [Cardizem CD] 240 mg capsule,extended release 24hr 240 mg PO DAILY Qty: 30 0RF Follow-up/Referrals: Twyla Chapa MD [Physician] - PHYSICIAN NOT ON STAFF,NONSTAFF [Primary Care Provider] -
[2024-04-23 17:21] VITALS: BP 103/54; PULSE 66; RESP 18; TEMP 36.7; O2SAT 100
[2024-04-23 17:34] VITALS: BP 110/67; PULSE 66; RESP 13; O2SAT 100
[2024-04-23 17:38] VITALS: BP 110/67; PULSE 61; RESP 18; TEMP 36.6; O2SAT 100
[2024-04-23 17:48] LABS: BEDSIDEPREGUCG Negative (Negative)
[2024-04-23 17:52] LABS: Basophils Percent Auto 0.6 % (0.2-1.2); Eosinophils Absolute Auto 0.1 K/mm3 (0-0.3); Eosinophils Percent Auto 1.9 % (0-4.4); Hematocrit 36.7 % (37.0-47.0); Hemoglobin 12.3 g/dL (12.0-15.0); Immature Granulocyte Absolute 0.02 K/mm3 (0.00-0.031); Immature Granulocyte Percent A 0.4 % (0-0.5); Lymphocytes Absolute Auto 2.11 K/mm3 (0.9-3.2); Lymphocytes Percent Auto 40.3 % (18.3-44.2); Mean Corpuscular HGB Conc 33.5 g/dl (32-36); Mean Corpuscular Hemoglobin 29.7 pg (26-34); Mean Corpuscular Volume 88.6 fl (80-100); Mean Platelet Volume 8.9 fl (7.4-10.4); Monocytes Absolute Auto 0.5 K/mm3 (0.1-0.6); Monocytes Percent Auto 9.2 % (2.6-8.5); Neutrophils Absolute Auto 2.5 K/mm3 (1.3-6.7); Neutrophils Percent Auto 47.6 % (45.5-73.1); Platelet Count Result 238 k/mm3 (150-375); Red Blood Count 4.14 M/mm3 (4.2-5.4); Red Cell Distribution Width 12.4 % (11.5-14.5); White Blood Count 5.2 K/mm3 (4.5-10.0)
[2024-04-23 18:03] LABS: Alanine Aminotransferase 14 U/L (6-35); Albumin Level 4.5 g/dL (3.5-5.1); Alkaline Phosphatase 51 U/L (38-126); Anion Gap 9 mmol/L (4-12); Aspartate Amino Transferase 19 U/L (14-36); Bilirubin,Total 0.8 mg/dL (0.2-1.3); Blood Urea Nitrogen 9 mg/dL (7-17); Calcium 9.1 mg/dL (8.4-10.2); Carbon Dioxide 29 mmol/L (22-30); Chloride 102 mmol/L (98-107); Estimated CRCL calculation 87 ml/min; Estimated Glomerular Filt Rate > 60; Glucose 92 mg/dL (65-110); INR 1.1; Potassium 3.9 mmol/L (3.4-5.0); Prothrombin Time 14.7 Seconds (11.1-14.7); Sodium 140 mmol/L (137-145)
[2024-04-23 18:04] LABS: Partial Thromboplastin Time 28.8 Seconds (22.3-36.8)
[2024-04-23 18:05] LABS: Add Urine Microscopic? YES; Appearance Urine Cloudy (Clear); Bacteria Urine 3+ /hpf; Bilirubin Urine Negative (Negative); Blood Urine 1+ (Negative); Color Urine Yellow (Yellow); Glucose Urine UA Negative (Negative); Ketones Urine 1+ mg/dL (Negative); Leukocyte Esterase Ur Negative LEU/UL (Negative); Mucus Urine Present /lpf; Need Manual Microscopic Reviewed; Nitrate Urine Negative (Negative); Non Pathogenic Casts 0-2; Protein Urine Trace mg/dL (Negative); Specific Grav Ur 1.021 (1.001-1.035); Squamous Epithelial Cell Urine Many /hpf (Few); Urobilinogen Urine 0.2 mg/dL (<2.0); pH Urine 5.5 (5.0-9.0)
[2024-04-23] MEDS: ONDANSETRON INJ 4 MG/2 ML VIAL IV PUSH (19:18)
[2024-04-23] MEDS: SODIUM CHLORIDE 0.9% IV 1,000 ML 999 ML IV CONT (19:18)
[2024-04-23] MEDS: MECLIZINE HCL 25 MG TABLET PO (19:19)
[2024-04-23 20:05] VITALS: BP 103/57; PULSE 59; RESP 19; O2SAT 99
[2024-04-23 20:31] VITALS: BP 111/66; PULSE 60; RESP 17; O2SAT 98
== END 2024-04-23 21:36 | disposition home or self-care (01) ==
PROVIDERS: Emergency Provider Physician Assistant
DX: R51.9 Headache, unspecified (principal); R42 Dizziness and giddiness; F17.290 Nicotine dependence, other tobacco product, uncomplicated; I45.10 Unspecified right bundle-branch block
CPT/HCPCS: 36415; 70450; 70496; 70498; 71046; 80053; 81001; 81025; 85025; 85610; 85730; 87086; 93005; 96361; 96374; 99284; A9270; J2405; J7030; Q9967